=== PATIENT | male | born 1960 | race Caucasian/White ===

== ENCOUNTER 2017-02-27 09:46 | Emergency (ER) | payer BC ==
--- NOTE | 2017-02-27 10:55 | ED ---
General Adult HPI - General Chief complaint: Extremity Problem,Nontraumatic Stated complaint: rt foot injury Time Seen by Provider: 02/27/17 10:00 Source: patient, RN notes reviewed Mode of arrival: ambulatory Limitations: no limitations - History of Present Illness Initial comments: This is a 56-year-old male presents emergency Department complaining that his right second toe is swollen and ecchymotic. Patient states he has significant neuropathy because of his diabetes and he does not have good sensation in that toe apple looked at it this morning and was swollen and ecchymotic so he thought he might have hurt it without knowing. Patient states pressing on it he can feel the pressure but it does not cause him any pain. Patient denies any blood thinners. Patient denies any other changes to his foot or ankle. Patient does not have any pain in his foot or ankle or any other part of his body. Again patient does not remember any trauma. - Related Data Home Medications Medication Instructions Recorded Confirmed Ascorbic Acid [Vitamin C] 500 mg PO DAILY 04/08/15 02/27/17 Glucosamine Sulfate 500 mg PO DAILY 04/08/15 02/27/17 [place]es-3 Fatty Acids/Fish Oil [Fish 1 cap PO DAILY 04/08/15 02/27/17 Oil 1,000 mg Softgel] Vitamin B Complex 1 cap PO DAILY 04/08/15 02/27/17 metFORMIN HCL [Glucophage] 1,000 mg PO BID 04/08/15 02/27/17 Cephalexin [Keflex] 500 mg PO BID 02/27/17 02/27/17 Cinnamon Bark [Cinnamon] 500 mg PO DAILY 02/27/17 02/27/17 Cranberry Fruit Extract [Cranberry] 200 mg PO DAILY 02/27/17 02/27/17 Empagliflozin/Linagliptin 1 tab PO DAILY 02/27/17 02/27/17 [Glyxambi 25 mg-5 mg Tablet] Lutein 10 mg PO DAILY 02/27/17 02/27/17 Allergies Allergy/AdvReac Type Severity Reaction Status Date / Time topical cocaine Allergy caused Uncoded 02/27/17 09:56 seizures Review of Systems ROS Statement: Those systems with pertinent positive or pertinent negative responses have been documented in the HPI. ROS Other: All systems not noted in ROS Statement are negative. Past Medical History Past Medical History: Diabetes Mellitus, GERD/Reflux, Seizure Disorder, Sleep Apnea/CPAP/BIPAP Additional Past Medical History / Comment(s): problem w/seizures years ago, "sharp waves left temporal lobe" per pt.-used to take keppra, no seizures in years, uses CPAP History of Any Multi-Drug Resistant Organisms: None Reported Past Surgical History: Appendectomy, Hernia Repair, Tonsillectomy Additional Past Surgical History / Comment(s): sinus surg., fatty tumor removed Past Anesthesia/Blood Transfusion Reactions: No Reported Reaction Past Psychological History: No Psychological Hx Reported Smoking Status: Former smoker Past Alcohol Use History: Occasional Past Drug Use History: None Reported - Past Family History Mother Family Medical History: No Reported History General Exam - General Exam Comments Initial Comments: GENERAL Patient is well-developed and well-nourished. Patient is in mild distress. EYES Patient's pupils are equal and round. Extraocular motion is intact SKIN Unremarkable NEURO The patient is alert and oriented 3 PYSCH Patient has normal interpersonal interactions. MUSCULOSKELETAL Right second toe is swollen and very ecchymotic I am unable to elicit any pain but the patient's sensation in that toe is extremely poor per the patient Limitations: no limitations Course Vital Signs 02/27/17 09:51 Temperature 97.4 F L Pulse Rate 73 Respiratory 16 Rate Blood Pressure 158/81 O2 Sat by Pulse 97 Oximetry Medical Decision Making - Medical Decision Making Patient is a fracture of the right second toe at the proximal second phalanx at the distal aspect Disposition Clinical Impression: Fractured toe Disposition: HOME SELF-CARE Condition: Good Instructions: Toe Fracture (ED) Additional Instructions: Patient should take Motrin and Tylenol for pain. Patient should not push off of the toes. Patient should apple taped 3 first toes together. Referrals: Ricardo Martinez MD [Primary Care Provider] - 1-2 days Time of Disposition: 11:19
--- NOTE | 2017-02-27 11:25 | XR ---
EXAMINATION TYPE: XR foot complete RT DATE OF EXAM: 02/27/2017 CLINICAL HISTORY: Swollen second right toe with no known injury. History of diabetes and neuropathy. TECHNIQUE: Frontal, lateral, and oblique images of the right foot are obtained. COMPARISON: None FINDINGS: There is no acute fracture/dislocation evident in the right foot. Joint space narrowing an d sclerosis are seen at the distal interphalangeal joints. Mild circumferential soft tissue swelling is seen of the second digit with no evidence of subcutaneous emphysema, radiopaque foreign body, janae ical erosion, periosteal reaction, or skin ulceration. The overlying soft tissue appears unremarkable . Productive osseous changes are appreciated at the talonavicular and naviculocuboid joints. IMPRESSION: 1. Circumferential mild soft tissue swelling of the second digit with no radiographic sequela of oste omyelitis. 2. There is no acute fracture or dislocation in the right foot. 3. 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
[2017-02-27 11:36] VITALS: BP 147/82; PULSE 69; RESP 18; TEMP 98.1
== END 2017-02-27 11:40 | disposition home or self-care (01) ==
LOC: EC 09:46
DX: S92.511A Displaced fracture of proximal phalanx of right lesser toe(s), initial encounter for closed fracture (principal); E11.9 Type 2 diabetes mellitus without complications; Z88.5 Allergy status to narcotic agent; Z87.891 Personal history of nicotine dependence; Z79.84 Long term (current) use of oral hypoglycemic drugs; Z79.899 Other long term (current) drug therapy; X58.XXXA Exposure to other specified factors, initial encounter
CPT/HCPCS: 99283